=== PATIENT | female | born 1990 | race African-American/Black ===

== ENCOUNTER 2017-03-13 15:21 | Emergency (ER) | payer SELFPAY ==
[~2017-03-13] VITALS: Ht 160 cm; Wt 76.7 kg
[2017-03-13 15:32] VITALS: BP 161/86
[2017-03-13] MEDS ORDERED: HYDR25TA PO (16:01)
[2017-03-13] MEDS ORDERED: METH4TAB2 PO (16:01)
[2017-03-13] MEDS ORDERED: TRAM-48 PO (16:01)
[2017-03-13] MEDS ORDERED: METH-37 PO (16:01)
--- NOTE | 2017-03-13 16:01 | PHYS DOC ---
Past Medical History Past Medical History: No Pertinent History Past Surgical History: No Surgical History Alcohol Use: Occasionally Drug Use: None Adult General Chief Complaint Chief Complaint: SKIN RASH/ABSCESS HPI HPI Patient is a 26 year old female who presents with multiple complaints. Patient states she was Canoeing at [place] over the weekend and has had a pruritic rash since then. Patient is also complaining of back pain with spasms since August when she had a miscarriage. Patient states she was seen at [facility] and was told that there is nothing wrong with her back, denies any chance she is . Patient denies any trauma. Denies any pain radiating to bilateral lower extremities. Denies any loss of bowel bladder function. Review of Systems Review of Systems Constitutional: Denies fever or chills [] GI: Denies abdominal pain, nausea, vomiting, bloody stools or diarrhea [] : Denies dysuria or hematuria [] Musculoskeletal: back pain Integument: rash Neurologic: Denies headache, focal weakness or sensory changes [] Endocrine: Denies polyuria or polydipsia [] Physical Exam Physical Exam Constitutional: Well developed, well nourished, no acute distress, non-toxic appearance. [] Abdomen: Bowel sounds normal, soft, no tenderness, no masses, no pulsatile masses. [] Skin: no rashes noted on physical exam but patient is itching in the ED Back: No tenderness, no CVA tenderness. [] Extremities: No tenderness, no cyanosis, no clubbing, ROM intact, no edema. [] Neurologic: Alert and oriented X 3, normal motor function, normal sensory function, no focal deficits noted. [] Psychologic: Affect normal, judgement normal, mood normal. [] Current Patient Data Vital Signs Vital Signs Date Time Temp Pulse Resp B/P (MAP) Pulse Ox O2 Delivery O2 Flow Rate FiO2 03/13/17 15:32 98.2 79 18 100 Room Air 98.2 EKG EKG [] Radiology/Procedures Radiology/Procedures [] Course & Med Decision Making Course & Med Decision Making Pertinent Labs and Imaging studies reviewed. (See chart for details) Patient is in the ED with complaints of a rash that began a couple days ago after canoeing at the [place] and back pain since August. No known trauma. No signs of cauda equina syndrome. We talked about radiology studies. She was discharged with Medrol Dosepak, ulatram and Robaxin. F/u with PCP or doctor from the list provided in one week. Marianne Disclaimer Dragon Disclaimer This electronic medical record was generated, in whole or in part, using a voice recognition dictation system. Departure Departure Impression: Primary Impression: Contact dermatitis Additional Impression: Back pain Disposition: 01 HOME, SELF-CARE Condition: STABLE Referrals: NO PCP (PCP) ASMITA RAMIREZ MD follow up in 1-2 weeks for back pain and spasms MAXIM FAJARDO MD follow up in 1-2 weeks Patient Instructions: Back Pain, Adult, Contact Dermatitis, [id number] Additional Instructions: You were seen for chronic back pain and a rash. Use the medication provided as ordered. F/u with the recreational assistant provided for the rash and pain clinic doctor provided for back pain. Scripts Tramadol Hcl (ULTRAM) 50 Mg Tablet 1 TAB PO Q6HRS, #30 TAB Prov: MEGHNA ROSS HUSKER OPERATOR 03/13/17 Methocarbamol (ROBAXIN) 500 Mg Tablet 1 TAB PO TID, #30 TAB Prov: MUTMEGHNA EVERETT HUSKER OPERATOR 03/13/17 Hydroxyzine Hcl (HYDROXYZINE HCL) 25 Mg Tablet 1 TAB PO TID, #30 TAB Prov: MUTMEGHNA EVERETT HUSKER OPERATOR 03/13/17 Methylprednisolone (MEDROL) 4 Mg Tab.ds.pk 1 PKG PO UD, #1 PKG Prov: MEGHNA ROSS HUSKER OPERATOR 03/13/17 Problem Qualifiers Primary Impression: Contact dermatitis Contact dermatitis type: unspecified Contact dermatitis trigger: unspecified trigger Qualified Codes: L25.9 - Unspecified contact dermatitis, unspecified cause Additional Impression: Back pain Back pain location: low back pain Chronicity: acute Back pain laterality: bilateral Sciatica presence: without sciatica Qualified Codes: M54.5 - Low back pain MEGHNA ROSS HUSKER OPERATOR Mar 13, 2017 16:01
== END 2017-03-13 16:35 | disposition home or self-care (01) ==
LOC: ER 15:21
DX: L25.9 Unspecified contact dermatitis, unspecified cause (principal); M54.5 Low back pain
CPT/HCPCS: 99283

== ENCOUNTER 2017-12-02 18:50 | Emergency (ER) | payer SELFPAY ==
[2017-12-02 19:08] LABS: URINE HCG POC HCG POSITIVE (Negative)
[2017-12-02 19:12] LABS: BILIRUBIN,URINE NEGATIVE (NEG); CLARITY,URINE CLEAR; COLOR,URINE YELLOW; GLUCOSE,URINE NEGATIVE (NEG); NITRITE,URINE NEGATIVE (NEG); PROTEIN,URINE NEGATIVE (NEG-TRACE)
[2017-12-02 19:21] LABS: BACTERIA,URINE MANY /HPF (0-FEW); RBC,URINE 0 /HPF (0-2); SQUAMOUS EPITHELIAL CELL,UR MOD /LPF
[2017-12-02 19:28] LABS: ADD MAN DIFF? NO
[2017-12-02 19:31] LABS: BASO # 0.1 x10^3/uL (0.0-0.2); BASO % 1 % (0-3); EOS # 0.1 x10^3/uL (0.0-0.7); EOS % 1 % (0-3); HEMATOCRIT 38.1 % (36.0-47.0); HEMOGLOBIN 12.1 g/dL (12.0-15.5); LYMPH # 1.9 x10^3/uL (1.0-4.8); LYMPH % 29 % (24-48); MEAN CORPUSCULAR HEMOGLOBIN 26 pg (25-35); MEAN CORPUSCULAR HGB CONC 32 g/dL (31-37); MEAN CORPUSCULAR VOLUME 82 fL (79-100); MONO # 0.4 x10^3/uL (0.0-1.1); MONO % 6 % (0-9); NEUT % 63 % (31-73); PLATELET COUNT 351 x10^3/uL (140-400); RED BLOOD COUNT 4.63 x10^6/uL (3.50-5.40); RED CELL DISTRIBUTION WIDTH 14.7 % (11.5-14.5); WHITE BLOOD COUNT 6.5 x10^3/uL (4.0-11.0)
[2017-12-02 19:40] LABS: ANION GAP 11 (6-14); BLOOD UREA NITROGEN 5 mg/dL (7-20); BUN/CREATININE RATIO 8 (6-20); CALCIUM 8.9 mg/dL (8.5-10.1); CARBON DIOXIDE 23 mmol/L (21-32); CHLORIDE 106 mmol/L (98-107); CREATININE 0.6 mg/dL (0.6-1.0); GFR 145.1; GLUCOSE 107 mg/dL (70-99); POTASSIUM 3.8 mmol/L (3.5-5.1); SODIUM 140 mmol/L (136-145)
[2017-12-02 19:45] LABS: ALBUMIN 3.6 g/dL (3.4-5.0); ALBUMIN/GLOBULIN RATIO 0.9 (1.0-1.7); ALK PHOS 73 U/L (46-116); ALT (SGPT) 16 U/L (14-59); AST (SGOT) 19 U/L (15-37); LIPASE 102 U/L (73-393); TOTAL BILIRUBIN 0.3 mg/dL (0.2-1.0); TOTAL PROTEIN 7.6 g/dL (6.4-8.2)
[2017-12-04 15:22] LABS: CHLAMYDIA PROBE Negative (Negative); GC PROBE Negative (Negative)
== END 2017-12-02 22:08 | disposition home or self-care (01) ==
LOC: ER 18:50
DX: O26.891 Other specified pregnancy related conditions, first trimester (principal); R10.2 Pelvic and perineal pain; Z3A.01 Less than 8 weeks gestation of pregnancy
CPT/HCPCS: 36415; 76801; 76817; 80053; 81001; 81025; 83690; 84702; 85025; 86901; 87086; 87491; 87591; 99285-25; Q0111

== ENCOUNTER → 2018-03-28 | Outpatient (CLI) | payer OTHER | END | disposition home or self-care (01) | LOC: US 13:34 | DX: O26.849 Uterine size-date discrepancy, unspecified trimester (principal); Z3A.23 23 weeks gestation of pregnancy | CPT/HCPCS: 76805 ==

== ENCOUNTER 2018-06-03 17:05 | Observation (INO) | payer OTHER ==
[2017-12-02 19:12] VITALS: BP 163/95
[~2018-06-03 17:05] MED LIST: HYDR25TA PO; METH-37 PO; METH4TAB2 PO; TRAM-48 PO
== END 2018-06-03 18:00 | disposition home or self-care (01) ==
LOC: 3 SO LND 17:05
PROVIDERS: ADMIT Obstetrics & Gynecology; ATTEND Obstetrics & Gynecology
DX: O99.89 Other specified diseases and conditions complicating pregnancy, childbirth and the puerperium (principal); Z20.2 Contact with and (suspected) exposure to infections with a predominantly sexual mode of transmission; Z3A.31 31 weeks gestation of pregnancy
CPT/HCPCS: 99285; G0378; G0379

== ENCOUNTER 2018-06-03 18:17 | Emergency (ER) | payer OTHER ==
[~2018-06-03] VITALS: Ht 165.1 cm; Wt 89.8 kg
[2018-06-03 18:28] VITALS: BP 133/77
--- NOTE | 2018-06-03 18:52 | PHYS DOC ---
Past Medical History Past Medical History: No Pertinent History Past Surgical History: No Surgical History Alcohol Use: Occasionally Drug Use: None Adult General Chief Complaint Chief Complaint: SEXUALLY TRANSMITTED DISEASE HPI HPI 27-year-old female presents at 32 week gestation with concern for possible STD exposure. Patient reports she recently found out that her boyfriend was cheating on her. Denies knowledge that her partner is having discharge or pain. Patient denies any increased vaginal discharge or bleeding. Patient was seen initially in labor and delivery and was sent down to his department for further evaluation and possible treatment. Patient denies any other issues. Denies rash. Denies burning with urination. Denies fever/chills. Review of Systems Review of Systems Constitutional: Denies fever or chills [] Eyes: Denies change in visual acuity, redness, or eye pain [] HENT: Denies nasal congestion or sore throat [] Respiratory: Denies cough or shortness of breath [] Cardiovascular: Denies chest pain or palpitations GI: Denies nausea, vomiting, or diarrhea [] : Denies dysuria or hematuria [] Musculoskeletal: Denies back pain or joint pain [] Integument: Denies rash or skin lesions [] Neurologic: Denies headache, focal weakness or sensory changes [] Complete systems were reviewed and found to be within normal limits, except as documented in this note. Current Medications Current Medications Current Medications Medications (Trade) Dose Ordered Sig/Shelia Start Time Stop Time Status Last Admin Dose Admin Azithromycin (Zithromax) 1,000 mg 1X ONCE 06/03/18 19:00 06/03/18 19:01 DC 06/03/18 18:58 1,000 MG Ceftriaxone Sodium (Rocephin Im) 250 mg 1X ONCE 06/03/18 19:00 06/03/18 19:01 DC 06/03/18 18:59 250 MG Allergies Allergies Allergies Coded Allergies Type Severity Reaction Last Updated Verified No Known Drug Allergies 03/13/17 No Physical Exam Physical Exam Constitutional: Well developed, well nourished, Neck: Normal range of motion, supple, Cardiovascular:Heart rate regular rhythm, no murmur [] Lungs & Thorax: Bilateral breath sounds clear to auscultation [] Abdomen: Soft, no tenderness, gravid uterus in third trimester Skin: Warm, dry, no erythema, no rash. [] Back: No tenderness, no CVA tenderness. [] Extremities: No tenderness, ROM intact, no edema. [] Neurologic: Alert and oriented X 3, no focal deficits noted. [] Psychologic: Affect normal, judgement normal, mood normal. [] Current Patient Data Vital Signs Vital Signs Date Time Temp Pulse Resp B/P (MAP) Pulse Ox O2 Delivery O2 Flow Rate FiO2 06/03/18 18:28 98.5 107 18 133/77 (95) 98 Room Air 98.5 EKG EKG [] Radiology/Procedures Radiology/Procedures [] Course & Med Decision Making Course & Med Decision Making Patient presents in third trimester with concern for possible STD exposure. Patient denies any increased vaginal discharge or bleeding. Patient was seen by labor and delivery and sent back down to the wrist department for further evaluation and treatment. Patient offered pelvic exam but was concerned that exam may cause premature labor. Patient also offered urine Chlamydia/gonorrhea testing which patient initially declined both by urine and by pelvic exam. Also offered empiric treatment with IM Rocephin and PO Azithromycin and holding on everything until her next appointment with FRAME [facility]. Patient elected to receive empiric antibiotics but then reported to RN prior to administration that she also wanted to give urine sample for testing for chlamydia/gonorrhea. Patient acknowledges understanding regarding limitation of urine testing but would be covered for both chlamydia and gonorrhea. Patient stable for discharge with outpatient follow-up with PCP/[facility]. Discussed findings and plan with patient, who acknowledges understanding and agreement. Dragon Disclaimer Dragon Disclaimer This electronic medical record was generated, in whole or in part, using a voice recognition dictation system. Departure Departure Impression: Primary Impression: Potential exposure to STD Additional Impression: Disposition: 01 HOME, SELF-CARE Condition: STABLE Referrals: NO PCP (PCP) Patient Instructions: Sexually Transmitted Diseases (STD) In Problem Qualifiers Additional Impression: Weeks of gestation: 32 weeks Qualified Codes: Z3A.32 - 32 weeks gestation of KATLIN MEJIA DO Jun 03, 2018 18:52
[2018-06-03] MEDS ORDERED: AZITHROMYCIN 250 MG TABLET. PO ONE (19:00)
[2018-06-03] MEDS ORDERED: cefTRIAXone IM 250 MG VIAL IM ONE (19:00)
== END 2018-06-03 19:08 | disposition home or self-care (01) ==
LOC: ER 18:17
DX: O26.893 Other specified pregnancy related conditions, third trimester (principal); Z20.2 Contact with and (suspected) exposure to infections with a predominantly sexual mode of transmission; Z3A.32 32 weeks gestation of pregnancy
CPT/HCPCS: 87491; 87591; 96372; 99284; J0696; Q0144

== ENCOUNTER 2019-09-04 12:46 | Emergency (ER) | payer OTHER ==
[~2019-09-04] VITALS: Ht 172.7 cm; Wt 89.8 kg
[2019-09-04 12:55] VITALS: BP 150/103
[2019-09-04 13:16] LABS: BILIRUBIN,URINE NEGATIVE (NEG); CLARITY,URINE CLEAR; COLOR,URINE YELLOW; NITRITE,URINE NEGATIVE (NEG); PROTEIN,URINE NEGATIVE (NEG-TRACE); UROBILINOGEN,URINE 0.2 mg/dL (0.2 mg/dL)
[2019-09-04 13:31] LABS: BACTERIA,URINE 0 /HPF (0-FEW); RBC,URINE 0 /HPF (0-2); SQUAMOUS EPITHELIAL CELL,UR FEW /LPF
--- NOTE | 2019-09-04 13:57 | RAD ---
Examination: PELVIS COMPLETE History: Pelvic pain Comparison/Correlation: None Findings: Transabdominal pelvic ultrasound was performed. Uterus measures 9.6 cm 2.9 cm x 4.5 cm. Myometrium is unremarkable. Endometrial thickness is 1 cm. Right ovary measures 3.7 cm x 2.2 cm x 2.6 cm. Right adnexal 2 cm diameter mildly hyperechoic echogenic cystic structure is present. The left ovary measures 4 cm x 2.8 cm x 2.4 cm. Normal ovarian flow is present. No suspicious adnexal lesions. No pelvic free fluid. Impression: Right adnexal 2 cm diameter mildly echogenic structure which probably represents a hemorrhagic cyst is evident. Correlate with beta hCG if an ectopic gestation is of concern. Correlate clinically concerning timing of interval follow-up to assess for resolution. Electronically signed by: Esequiel Cornell MD (09/04/2019 1:54 PM) [facility]
[2019-09-04] MEDS ORDERED: NAPR-683 PO (14:18)
--- NOTE | 2019-09-04 14:18 | PHYS DOC ---
Past Medical History Past Medical History: No Pertinent History Past Surgical History: No Surgical History Alcohol Use: Occasionally Drug Use: None Adult General Chief Complaint Chief Complaint: PELVIC PAIN HPI HPI Patient is a 28 year old with history of medical problem who presents with complaint of abdominal pain. Patient complaining patient complaining of intermittent episodes of lower abdominal pain for the last 14 months after she had her in June 2018 that usually last for several hours to several days as a sharp and severe pain and rated her pain 10 over 10. Patient has appointment with her REGISTRATION CLERK in 2 days but decided to come to ER because of pain. She denies fever and chills, nausea and vomiting, urinary symptoms, diarrhea and constipation, vaginal bleeding or discharge, . Review of Systems Review of Systems Constitutional: Denies fever or chills [] Eyes: Denies change in visual acuity, redness, or eye pain [] HENT: Denies nasal congestion or sore throat [] Respiratory: Denies cough or shortness of breath [] Cardiovascular: No additional information not addressed in HPI [] GI: Deniesnausea, vomiting, bloody stools or diarrhea , reports abdominal pain[] : Denies dysuria or hematuria [] Musculoskeletal: Denies back pain or joint pain [] Integument: Denies rash or skin lesions [] Neurologic: Denies headache, focal weakness or sensory changes [] Endocrine: Denies polyuria or polydipsia [] All other systems were reviewed and found to be within normal limits, except as documented in this note. Allergies Allergies Allergies Coded Allergies Type Severity Reaction Last Updated Verified No Known Drug Allergies 03/13/17 No Physical Exam Physical Exam Constitutional: Well developed, well nourished, no acute distress, non-toxic appearance. [] HENT: Normocephalic, atraumatic, bilateral external ears normal, oropharynx moist, no oral exudates, nose normal. [] Eyes: PERRLA, EOMI, conjunctiva normal, no discharge. [] Neck: Normal range of motion, no tenderness, supple, no stridor. [] Cardiovascular:Heart rate regular rhythm, no murmur [] Lungs & Thorax: Bilateral breath sounds clear to auscultation [] Abdomen: Bowel sounds normal, soft, no tenderness, no masses, no pulsatile masses. [] Skin: Warm, dry, no erythema, no rash. [] Back: No tenderness, no CVA tenderness. [] Extremities: No tenderness, no cyanosis, no clubbing, ROM intact, no edema. [] Neurologic: Alert and oriented X 3, normal motor function, normal sensory function, no focal deficits noted. [] Psychologic: Affect normal, judgement normal, mood normal. [] Current Patient Data Vital Signs Vital Signs Date Time Temp Pulse Resp B/P (MAP) Pulse Ox O2 Delivery O2 Flow Rate FiO2 09/04/19 12:55 98.3 68 18 150/103 (119) 100 Room Air 98.3 Lab Values Laboratory Tests Test 09/04/19 12:55 09/04/19 13:04 Urine Color Yellow Urine Clarity Clear Urine pH 6.0 Urine Specific Alexis 1.025 Urine Protein Negative mg/dL (NEG-TRACE) Urine Glucose (UA) Negative mg/dL (NEG) Urine Ketones (Stick) Negative mg/dL (NEG) Urine Blood Negative (NEG) Urine Nitrite Negative (NEG) Urine Bilirubin Negative (NEG) Urine Urobilinogen Dipstick 0.2 mg/dL (0.2 mg/dL) Urine Leukocyte Esterase Negative (NEG) Urine RBC 0 /HPF (0-2) Urine WBC 1-4 /HPF (0-4) Urine Squamous Epithelial Cells Few /LPF Urine Bacteria 0 /HPF (0-FEW) Urine Mucus Mod /LPF POC Urine HCG, Qualitative Hcg negative (Negative) EKG EKG [] Radiology/Procedures Radiology/Procedures [] [address] [place], [place] [id number] IMAGING REPORT Signed PATIENT: VLAD RIVERA DACCOUNT: [id number] : 1990 LOCATION: ER AGE: 28 SEX: F EXAM STATUS: REG ER ORD. PHYSICIAN: SONALI GARZA MD REASON: pelvic pain intermittently for 14 months PROCEDURE: PELVIS COMPLETE Examination: PELVIS COMPLETE History: Pelvic pain Comparison/Correlation: None Findings: Transabdominal pelvic ultrasound was performed. Uterus measures 9.6 cm 2.9 cm x 4.5 cm. Myometrium is unremarkable. Endometrial thickness is 1 cm. Right ovary measures 3.7 cm x 2.2 cm x 2.6 cm. Right adnexal 2 cm diameter mildly hyperechoic echogenic cystic structure is present. The left ovary measures 4 cm x 2.8 cm x 2.4 cm. Normal ovarian flow is present. No suspicious adnexal lesions. No pelvic free fluid. Impression: Right adnexal 2 cm diameter mildly echogenic structure which probably represents a hemorrhagic cyst is evident. Correlate with beta hCG if an ectopic gestation is of concern. Correlate clinically concerning timing of interval follow-up to assess for resolution. Electronically signed by: Esequiel Gardner MD (09/04/2019 1:54 PM) [facility] DICTATED and SIGNED BY: ESEQUIEL GARDNER MD DATE: 09/04/19 8783 Course & Med Decision Making Course & Med Decision Making Pertinent Labs and Imaging studies reviewed. (See chart for details) discharge: I've spoken with the patient and/or caregivers. I've explained the patient's condition, diagnosis and treatment plan based on information available to me at this time. I've answered the patient's and/or caregivers questions and addressed any concerns. The patient and/or caregivers have a good understanding the patient's diagnosis, condition and treatment plan as can be expected at this point. Vital signs have been stabilized. The patient's condition is stable for discharge from the emergency department. The patient will pursue further outpatient evaluation with her primary care provider or other designated consulting physician as outlined in the discharge instructions. Patient and/or caregivers are agreeable to this plan of care and follow-up instructions have been explained in detail. The patient and/or caregivers have received these instructions in written format and expressed understanding of these discharge instructions. The patient and her caregivers are aware that if any significant change in condition or worsening of symptoms should prompt him to immediately return to this of the closest emergency department. If an emergent department is not readily available I would enco urage him to call 911. Marianne Disclaimer Brenon Disclaimer This electronic medical record was generated, in whole or in part, using a voice recognition dictation system. Departure Departure Impression: Primary Impression: Hemorrhagic ovarian cyst Additional Impression: Chronic abdominal pain Disposition: HOME, SELF-CARE (at 1417) Condition: STABLE Referrals: NO PCP (PCP) Patient Instructions: Abdominal Pain, Ovarian Cyst Additional Instructions: Drink plenty of liquids Follow-up with your REGISTRATION CLERK physician as scheduled in 2 days Return to ER if not getting better Thank you for visiting [facility]. We appreciate you trusting us with your care. If any additional problems come up don't hesitate to return to visit us. Please follow up with your primary care provider so they can plan additional care if needed and know about the problem that you had. If symptoms worsen come back to the Emergency Department. Any concerning symptoms that start such as chest pain, shortness of air, weakness or numbness on one side of the body, running high fevers or any other concerning symptoms return to the ER. Scripts Naproxen (NAPROSYN) 500 Mg Tablet 1 TAB PO BID for pain, #20 TAB Prov: SONALI GARZA MD 09/04/19 Problem Qualifiers SONALI GARZA MD Sep 04, 2019 14:18
== END 2019-09-04 14:25 | disposition home or self-care (01) ==
LOC: ER 12:46
DX: N83.291 Other ovarian cyst, right side (principal); G89.29 Other chronic pain; R10.30 Lower abdominal pain, unspecified; Z98.890 Other specified postprocedural states
CPT/HCPCS: 76856; 81001; 81025; 99285

== ENCOUNTER → 2020-08-27 | Outpatient (CLI) | payer MEDICAID ==
[~2020-08-27] MED LIST changes: +NAPR-683 PO
--- NOTE | 2020-08-27 13:30 | RAD ---
EXAM: Pelvic sonogram. HISTORY: Pelvic pain. TECHNIQUE: Sonographic imaging of the pelvis was performed. COMPARISON: 09/04/2019. FINDINGS: The uterus measures 10.2 x 5.0 x 4.8 cm. The endometrial stripe measures 9.3 mm in thicknes s. There are 2 subcentimeter uterine fibroids. The ovaries are normal in size and demonstrate normal blood flow. There is a 2.0 cm dominant right ovarian follicle/follicular cyst. There are small bilate ral antral follicles. There is a small amount of pelvic free fluid. IMPRESSION: 1. 2.0 cm dominant right ovarian follicle/follicular cyst. 2. Suspected small uterine fibroids. 3. Small amount of nonspecific pelvic free fluid. Electronically signed by: Alicia Barakat MD (08/27/2020 1:27 PM) [id number]
== END ==
LOC: US 13:37
PROVIDERS: ATTEND Obstetrics & Gynecology
DX: N83.01 Follicular cyst of right ovary (principal)
CPT/HCPCS: 76830; 76856